=== PATIENT | female | born 1960 | race Caucasian/White ===

== ENCOUNTER 2020-01-11 07:08 | Day surgery (SDC) | payer OTHER ==
[~2020-01-11] VITALS: Ht 149.9 cm; Wt 60.3 kg
[2020-01-11 08:33] VITALS: BP 118/71
[2020-01-11 17:40] VITALS: BP 117/61
== END 2020-01-11 12:30 | disposition home or self-care (01) ==
LOC: DS 07:08 → OR 09:00 → GI 09:00 → DS 12:30
PROVIDERS: ATTEND Internal Medicine Gastroenterology
DX: R10.9 Unspecified abdominal pain (principal); D12.3 Benign neoplasm of transverse colon; F32.9 Major depressive disorder, single episode, unspecified
CPT/HCPCS: 43235; 45378; J1200; J1610; J2250; J2310; J3010; J3490